=== PATIENT | male | born 1955 | race Caucasian/White ===

== ENCOUNTER 2025-01-27 14:04 | Outpatient (CLI) | payer MEDICARE ==
[~2025-01-27 14:04] MED LIST: iohexol 300mg/ml 100ml inj. ONE
--- NOTE | 2025-01-27 16:06 | RADIOLOGY REPORT ---
Indication: METASTATIC CANCER WITH UNKNOWN SOURCE Technique: CT axial images of the chest abdomen and pelvis are obtained with intravenous contrast. Coronal and sagittal reformats were obtained. Radiation Dose Information: CTDI volume is 29.2 mGy. Dose-length product is 2430 mGy*cm Comparison: None FINDINGS: The trachea is patent. No pneumothorax. 5 mm right upper lobe nodule, image 37 of 92. Heart normal in size coronary artery calcification disease. Aortic atherosclerotic disease. No supraclavicular, axillary lymphadenopathy. Adrenal glands, spleen, pancreas unremarkable. Hepatic steatosis. No CT evidence for cholelithiasis Right renal cyst measuring 7 cm. No hydronephrosis bilaterally. 2 mm nonobstructing left renal calculus. Stomach is partially distended. Mild thickening of the 2nd segment of the duodenum. Colonic diverticular disease. No secondary signs for appendicitis. Abdominal aorta normal in caliber. Atherosclerotic disease bladder contracted. No free pelvic fluid. Prostate measures 5 cm transversely. No free pelvic fluid. No inguinal lymphadenopathy. 11 mm right iliac lymph node. Left inferior pubic ramus, pubic symphysis destructive /permeative changes as well as sclerosis measuring at least 8.9 x 1.8 cm. 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 Some of the include S1 lesion measuring 2.2 cm, L3 lesion measuring 2 cm, T11 lesion measuring 1.7 cm T7 lesion measuring 1.8 cm T4 lesion measuring 12 mm. Bilateral rib sclerotic lesions. 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 This most prominent involving the left inferior pubic ramus where there is a destructive lesion with permeative changes measuring 8.9 x 1.8 cm. Prostatomegaly. Correlate with PSA levels. 5 mm right upper lobe nodule. Hepatic steatosis. Colonic diverticular disease. Mild thickening of the 2nd segment of the duodenum. This can be further evaluated with CT enterography / oral contrast, small-bowel series, endoscopy.[id number] Other findings as described. If primary malignancy sites is still unknown, consider obtaining a PET scan to further evaluate. Tissue sampling can also be considered especially of the left inferior pubic ramus destructive lesion
== END 2025-01-27 23:59 | disposition home or self-care (01) ==
LOC: RAD 14:04
PROVIDERS: ATTEND Family Medicine
DX: C80.1 Malignant (primary) neoplasm, unspecified (principal); C79.89 Secondary malignant neoplasm of other specified sites; G89.3 Neoplasm related pain (acute) (chronic); N28.1 Cyst of kidney, acquired
CPT/HCPCS: 71260; 74177; Q9967